=== PATIENT | male | born 1960 | race Caucasian/White ===

== ENCOUNTER → 2019-05-26 | Day surgery (SDC) | payer OTHER ==
[~2019-05-26] MED LIST: Lactated Ringers 1,000 ML IV SCH; Propofol 200 MG/20 ML SDV IV ONE
[2019-05-26 09:11] VITALS: BP 118/65
--- NOTE | 2019-05-26 14:45 | OR ---
DATE OF OPERATION: 05/26/2019 PREOPERATIVE DIAGNOSIS: HEMATOCHEZIA. POSTOPERATIVE DIAGNOSIS: HEMATOCHEZIA. SURGEON: Dion Chandler MD PROCEDURE: FULL-LENGTH DIAGNOSTIC COLONOSCOPY. ANESTHESIA: MAC. COMPLICATIONS: None. SPECIMEN: None. FINDINGS: 1. Full-length colonoscopy. 2. Mild sigmoid diverticulosis. 3. Perianal hemorrhoid disease. RECOMMENDATIONS: Routine followup colonoscopy per ACS guidelines. INDICATIONS: The patient had a prior colonoscopy I believe 4 years ago. He has been having some occasional hematochezia, however. We elected to proceed with diagnostic scope. DESCRIPTION OF PROCEDURE: The patient was prepped and draped, placed in the left lateral decubitus position. A lubricated Olympus colonoscope was inserted and easily advanced to the cecum. Direct visualization of the ileocecal valve and appendiceal orifice was accomplished. The bowel prep was fine. Upon withdrawal of the scope, the right transverse and descending colons appeared completely benign. The patient does have scattered diverticula in the sigmoid colon. Throughout the colon, I found no polyps, mass, ulceration, or bleeding sites. No vascular abnormalities or signs of colitis. The rectal vault was benign. Retroflexion of the scope in the rectum showed some perianal hemorrhoid disease, otherwise unremarkable. Air was then suctioned from the colonoscope and removed without complication. JOSIAH/SAQIB /[id number]
== END ==
LOC: CC.SDS 07:16
PROVIDERS: ATTEND Family Medicine
DX: K57.31 Diverticulosis of large intestine without perforation or abscess with bleeding (principal); K64.4 Residual hemorrhoidal skin tags; K21.9 Gastro-esophageal reflux disease without esophagitis; I10 Essential (primary) hypertension; G47.33 Obstructive sleep apnea (adult) (pediatric); G89.29 Other chronic pain; M54.5 Low back pain; R73.02 Impaired glucose tolerance (oral); E66.9 Obesity, unspecified; Z68.43 Body mass index [BMI] 50.0-59.9, adult; Z88.8 Allergy status to other drugs, medicaments and biological substances; Z79.899 Other long term (current) drug therapy
CPT/HCPCS: 45378; J2704; J7120; G0121

== ENCOUNTER 2021-10-09 20:47 | Emergency (ER) | payer OTHER ==
[2021-10-09 20:50] VITALS: BP 130/73; PULSE 66
--- NOTE | 2021-10-09 21:22 | EDM.PDOC ---
ED HPI GENERAL MEDICAL PROBLEM - General Chief Complaint: Upper Extremity Injury/Pain Stated Complaint: arm pain Time Seen by Provider: 10/09/21 21:10 Source of Information: Reports: Patient History Limitations: Reports: No Limitations - History of Present Illness INITIAL COMMENTS - FREE TEXT/NARRATIVE: Yoshi is a 61 year old male who presents to the ED with c/o right forearm injury. He reports he was hauling a heavy piece of metal, trying to hold it away from his jacket to prevent it from getting dirty, and he had an instant pain to mid forearm. Reports he now has pain to mid forearm anytime he pronates or supinates his wrist. Does not have any pain with flexion or extension. Pain is improved at rest. He reports his was concerned as she thought his right hand was cooler than his left. Does have some numbness to his fingers. Admits he has not been moving it much due to the pain. Did take ibuprofen and unsure if helped pain or not. Onset: Today, Sudden Duration: Intermittent Location: Reports: Upper Extremity, Right Quality: Reports: Sharp Severity: Mild Worsens with: Reports: Movement (pronation or suppination ) Associated Symptoms: Reports: No Other Symptoms Treatments MANAGING ATTORNEY: Reports: NSAIDS Right Arm Pain Score (Numeric/FACES): 7 - Related Data Allergies Allergy/AdvReac Type Severity Reaction Status Date / Time aspirin [From Soma Compound] Allergy Difficulty Verified 10/09/21 20:51 Breathing carisoprodol Allergy Difficulty Verified 10/09/21 20:51 [From Soma Compound] Breathing Home Meds: Home Meds Losartan Potassium 50 mg PO DAILY 05/25/19 [History] atorvaSTATin [Lipitor] 10 mg PO DAILY 10/09/21 [History] Past Medical History Cardiovascular History: Reports: High Cholesterol, Hypertension - Past Surgical History HEENT Surgical History: Reports: Oral Surgery, Tonsillectomy GI Surgical History: Reports: Cholecystectomy Social & Family History - Family History Family Medical History: No Pertinent Family History - Tobacco Use Tobacco Use Status *Q: Never Tobacco User - Caffeine Use Caffeine Use: Reports: Coffee - Recreational Drug Use Recreational Drug Use: No Review of Systems - Review of Systems Review Of Systems: Comprehensive ROS is negative, except as noted in HPI. ED EXAM, GENERAL - Physical Exam Exam: See Below Exam Limited By: No Limitations General Appearance: Alert, WD/WN, No Apparent Distress Peripheral Pulses: 2+: Radial (L), Radial (R) Extremities: Normal Inspection, Normal Range of Motion (pain with pronation and suppination), Normal Capillary Refill, Arm Pain (tenderness to medial aspect of mid forarm ). No: Joint Swelling Neurological: Alert, Oriented, No Motor/Sensory Deficits Skin Exam: No: Ecchymosis Course - Vital Signs Last Recorded V/S: Last Vital Signs Temp 97.4 F 10/09/21 20:48 Pulse 66 10/09/21 20:48 Resp 18 10/09/21 20:48 BP 130/73 10/09/21 20:48 Pulse Ox 97 10/09/21 20:48 - Orders/Labs/Meds Orders: Active Orders 24 hr Category Date Time Status Forearm 2V Rt [CR] Stat Exams 10/09/21 20:52 Taken - Re-Assessments/Exams Free Text/Narrative Re-Assessment/Exam: Xrays negative per my review. Departure - Departure Time of Disposition: 21:39 Disposition: Home, Self-Care 01 Condition: Good Clinical Impression: Forearm injury Qualifiers: Encounter type: initial encounter Laterality: right Qualified Code(s): S59.911A - Unspecified injury of right forearm, initial encounter - Discharge Information *PRESCRIPTION DRUG MONITORING PROGRAM REVIEWED*: Not Applicable *COPY OF PRESCRIPTION DRUG MONITORING REPORT IN PATIENT KIRSTEN: Not Applicable Forms: ED Department Discharge Additional Instructions: - Recommend RICE therapies (rest, ice, compression and elevation) - Alternate Tylenol and ibuprofen every 4-6 hours as needed for pain - Recommend weightbearing/activity as tolerated - Follow up with PCP for recheck if symptoms worsen or do not improve - Return to ED for emergent needs Sepsis Event Note (ED) - Evaluation Sepsis Screening Result: No Definite Risk - Focused Exam Vital Signs: Vital Signs Temp Pulse Resp BP Pulse Ox 10/09/21 20:48 97.4 F 66 18 130/73 97 - Problem List & Annotations (1) Forearm injury Status: Acute Qualifiers: Encounter type: initial encounter Laterality: right Qualified Code(s): S59.911A - Unspecified injury of right forearm, initial encounter - My Orders Last 24 Hours: My Active Orders 10/09/21 20:52 Forearm 2V Rt [CR] Stat - Assessment/Plan Last 24 Hours: My Active Orders 10/09/21 20:52 Forearm 2V Rt [CR] Stat Assessment:: Right Forearm Injury Plan: As above.
== END 2021-10-09 22:00 | disposition home or self-care (01) ==
LOC: CC.ED 20:47
DX: S59.911A Unspecified injury of right forearm, initial encounter (principal); E78.00 Pure hypercholesterolemia, unspecified; Z79.899 Other long term (current) drug therapy; Z88.8 Allergy status to other drugs, medicaments and biological substances; X50.0XXA Overexertion from strenuous movement or load, initial encounter
CPT/HCPCS: 73090-RT; 99283